=== PATIENT | male | born 1945 ===

== ENCOUNTER 2019-11-15 12:53 | Outpatient (CLI) | payer OTHER | END 2019-11-15 12:58 | disposition home or self-care (01) | LOC: RAD 12:53 | DX: K59.09 Other constipation (principal) ==

== ENCOUNTER 2022-10-27 07:09 | Outpatient (CLI) | payer OTHER | END 2022-10-27 07:18 | disposition home or self-care (01) | LOC: SONOGRAMA 07:09 | PROVIDERS: ATTEND General Practice | DX: R10.9 Unspecified abdominal pain (principal) ==

== ENCOUNTER 2022-11-24 07:43 | Outpatient (CLI) | payer OTHER | END 2022-11-24 07:49 | disposition home or self-care (01) | LOC: RAD 07:43 | PROVIDERS: ATTEND General Practice | DX: R05.9 Cough, unspecified (principal) ==

== ENCOUNTER 2023-01-06 09:22 | Outpatient (CLI) | payer OTHER | END 2023-01-06 09:29 | disposition home or self-care (01) | LOC: RAD 09:22 | PROVIDERS: ATTEND Internal Medicine Gastroenterology | DX: K59.00 Constipation, unspecified (principal) ==

== ENCOUNTER 2024-02-21 08:28 | Outpatient (CLI) | payer OTHER | END 2024-02-21 08:41 | disposition home or self-care (01) | LOC: RAD 08:28 | DX: M54.2 Cervicalgia (principal); M54.6 Pain in thoracic spine; M99.03 Segmental and somatic dysfunction of lumbar region ==